=== PATIENT | female | born 1950 ===

== ENCOUNTER 2019-02-21 14:26 | Outpatient (CLI) | payer MEDICARE | END 2019-02-21 14:27 | disposition home or self-care (01) | LOC: C.MRIC 14:26 | DX: I63.9 Cerebral infarction, unspecified (principal) ==

== ENCOUNTER → 2019-02-24 | Outpatient (CLI) | payer MEDICARE | END | disposition home or self-care (01) | LOC: C.EEG 10:51 | DX: R56.9 Unspecified convulsions (principal) ==